=== PATIENT | female | born 1995 | race Asian ===

== ENCOUNTER 2018-12-28 04:50 | Emergency (ER) | payer OTHER ==
[2018-12-28 05:43] LABS: URINE SOURCE CLEAN C
[2018-12-28 05:45] LABS: % BASOPHILS 1.1 % (0.0-2.0); % EOSINOPHILS 2.7 % (0.0-5.0); % LYMPHOCYTES 12.9 % (20.0-50.0); % MONOCYTES 9.4 % (2.0-10.0); % NEUTROPHILS 73.9 % (40.0-80.0); BASOPHILE ABSOLUTE 0.1 Th/cumm (0-0.2); EOSINOPHILE ABSOLUTE 0.1 Th/cmm (0.1-0.4); HEMATOCRIT 32.4 % (41.0-60); HEMOGLOBIN 10.5 gm/dL (12-16); LYMPHOCYTE ABSOLUTE 0.6 Th/cmm (1.5-3.0); MEAN CELL VOLUME 76.4 fl (81-100); MEAN CORPUSCULAR HEMOGLOBIN 24.8 pg (27.0-31.0); MEAN CORPUSCULAR HGB CONC 32.5 pg (28.0-36.0); MEAN PLATELET VOLUME 8.7 fl; MONOCYTE ABSOLUTE 0.5 Th/cmm (0.3-1.0); NEUTROPHILE ABSOLUTE 3.7 Th/cmm (1.8-8.0); PLATELET COUNT 242 Th/cmm (150-400); RED BLOOD COUNT 4.24 Mil/cmm (3.80-5.10); RED CELL DISTRIBUTION WIDTH 13.4 % (11.5-20.0)
[2018-12-28 05:46] LABS: URINE BILIRUBIN NEGATIVE (NEGATIVE); URINE BLOOD LARGE (NEGATIVE); URINE GLUCOSE (UA) NEGATIVE (NEGATIVE); URINE KETONE NEGATIVE (NEGATIVE); URINE LEUKOCYTE ESTERASE NEGATIVE (NEGATIVE); URINE MICROSCOPIC INDICATED? YES; URINE NITRATE NEGATIVE (NEGATIVE); URINE PH 6.5 (4.6 - 8.0); URINE PROTEIN NEGATIVE (NEGATIVE); URINE UROBILINOGEN 0.2 E.U./dL (0.2 - 1.0)
[2018-12-28 05:52] LABS: URINE CLARITY CLEAR (CLEAR); URINE COLOR YELLOW
[2018-12-28 05:54] LABS: URINE BACTERIA FEW /hpf (NONE SEEN); URINE EPITHELIAL CELLS FEW /lpf (FEW); URINE WBC 0-2 /hpf (0-5)
[2018-12-28 05:59] LABS: ALB/GLOB RATIO 1.6 (1.0-1.8); ALBUMIN 4.4 gm/dL (3.7-5.3); ALKALINE PHOSPHATASE 57 U/L (34-104); BILIRUBIN,TOTAL 0.5 mg/dL (0.3-1.0); BUN - UREA NITROGEN 7 mg/dL (7-25); CALCIUM SERUM 9.6 mg/dL (8.6-10.3); CARBON DIOXIDE 24.1 mEq/L (21.0-31.0); CHLORIDE 107 mEq/L (98-107); CREATININE - SERUM 0.6 mg/dL (0.6-1.2); GFR AFRICAN-AMERICAN > 60.0 ml/min (>90); GFR NON AFRICAN-AMERICAN > 60.0 ml/min; GLUCOSE 93 mg/dL (70-105); POTASSIUM SERUM 4.1 mEq/L (3.5-5.1); SGOT 17 U/L (13-39); SGPT/ALT 12 U/L (7-52); SODIUM SERUM 137 mEq/L (136-145); TOTAL PROTEIN,SERUM 7.2 gm/dL (6.0-8.3)
--- NOTE | 2018-12-28 06:17 | ED Physician Chart ---
ED Chief Complaint/HPI - Patient Information Allergies:: Allergies Allergy/AdvReac Type Severity Reaction Status Date / Time No Known Allergies Allergy Verified 12/28/18 05:19 Vitals:: Vital Signs - 8 hr 12/28/18 04:58 Temp 98.3 F HR 84 RR 18 BP 118/59 O2 Sat % 99 <Gerald Franz - Last Filed: 12/28/18 07:47> - Patient Information Date Seen:: 12/28/18 Time Seen:: 06:17 Chief Complaint:: Neck pain and left upper back pain History of Present Illness:: 23 yo female was brought to ER on 5am for sudden onset of headache, neck pain, left upper back pain and left shoulder pain since 9pm, with fever and chills. Pt denied nausea or vomiting. Allergies:: Allergies Allergy/AdvReac Type Severity Reaction Status Date / Time No Known Allergies Allergy Verified 12/28/18 05:19 Vitals:: Vital Signs - 8 hr 12/28/18 04:58 Temp 98.3 F HR 84 RR 18 BP 118/59 O2 Sat % 99 <Washington Sanchez - Last Filed: 12/28/18 09:39> ED Review of Systems - Review of Systems General/Constitutional: Fever, Chills Skin: No rash Head: Headache, Light headed Eyes: No pain ENT: No earache Neck: Neck pain Cardio Vascular: No chest pain Pulmonary: SOB GI: No nausea, No vomiting G/U: No dysuria Musculoskeletal: Muscle pain Psychiatric: No prior psych history Neurological: No focal symptoms <Washington Sanchez - Last Filed: 12/28/18 09:39> ED Past Medical History - Past Medical History Past Medical History: No significant medical hx, Other Social History: Non Smoker, No Alcohol, No Drug Use Surgical History: (x 2, ), other (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 Respiratory: No Wheeze/Rhonchi/Rales Cardio Vascular: RRR, No murmur, gallop, rubs, NL S1 S2 GI: No tenderness/rebounding/guarding Extremities: Full ROM Other Extremities comments:: L-spine, c-spine tenderness, left shoulder tenderness, left shoulder painful ROM. Neuro/Psych: Alert/oriented, No focal deficits Other Neuro/Psych comments:: Babinski downward bilaterally <Washington Sanchez - Last Filed: 12/28/18 09:39> ED Labs/Radiology/EKG Results - Lab Results Results: Laboratory Tests 12/28/18 12/28/18 12/28/18 05:40 05:40 05:40 WBC 5.0 RBC 4.24 Hgb 10.5 L Hct 32.4 L MCV 76.4 L MCH 24.8 L MCHC Differential 32.5 RDW 13.4 Plt Count 242 MPV 8.7 Neutrophils % 73.9 Lymphocytes % 12.9 L Monocytes % 9.4 Eosinophils % 2.7 Basophils % 1.1 Sodium 137 Potassium 4.1 Chloride 107 Carbon Dioxide 24.1 Anion Gap 10.0 BUN 7 Creatinine 0.6 Est GFR ( Amer) > 60.0 Est GFR (Non-Af Amer) > 60.0 BUN/Creatinine Ratio 11.7 Glucose 93 Calcium 9.6 Total Bilirubin 0.5 AST 17 ALT 12 Alkaline Phosphatase 57 Total Protein 7.2 Albumin 4.4 Globulin 2.8 Albumin/Globulin Ratio 1.6 Urine Source Urine Color Urine Clarity Urine pH Ur Specific [place] Urine Protein Urine Glucose (UA) Urine Ketones Urine Blood Urine Nitrate Urine Bilirubin Urine Urobilinogen Ur Leukocyte Esterase Urine RBC Urine WBC Ur Epithelial Cells Urine Bacteria Urine Test NEGATIVE 12/28/18 05:40 WBC RBC Hgb Hct MCV MCH MCHC Differential RDW Plt Count MPV Neutrophils % Lymphocytes % Monocytes % Eosinophils % Basophils % Sodium Potassium Chloride Carbon Dioxide Anion Gap BUN Creatinine Est GFR ( Amer) Est GFR (Non-Af Amer) BUN/Creatinine Ratio Glucose Calcium Total Bilirubin AST ALT Alkaline Phosphatase Total Protein Albumin Globulin Albumin/Globulin Ratio Urine Source CLEAN C Urine Color YELLOW Urine Clarity CLEAR Urine pH 6.5 Ur Specific [place] <= 1.005 Urine Protein NEGATIVE Urine Glucose (UA) NEGATIVE Urine Ketones NEGATIVE Urine Blood LARGE H Urine Nitrate NEGATIVE Urine Bilirubin NEGATIVE Urine Urobilinogen 0.2 Ur Leukocyte Esterase NEGATIVE Urine RBC 2-5 Urine WBC 0-2 Ur Epithelial Cells FEW Urine Bacteria FEW Urine Test <Gerald Franz - Last Filed: 12/28/18 07:47> - Lab Results Results: Laboratory Tests 12/28/18 12/28/18 12/28/18 05:40 05:40 05:40 WBC 5.0 RBC 4.24 Hgb 10.5 L Hct 32.4 L MCV 76.4 L MCH 24.8 L MCHC Differential 32.5 RDW 13.4 Plt Count 242 MPV 8.7 Neutrophils % 73.9 Lymphocytes % 12.9 L Monocytes % 9.4 Eosinophils % 2.7 Basophils % 1.1 Sodium 137 Potassium 4.1 Chloride 107 Carbon Dioxide 24.1 Anion Gap 10.0 BUN 7 Creatinine 0.6 Est GFR ( Amer) > 60.0 Est GFR (Non-Af Amer) > 60.0 BUN/Creatinine Ratio 11.7 Glucose 93 Calcium 9.6 Total Bilirubin 0.5 AST 17 ALT 12 Alkaline Phosphatase 57 Total Protein 7.2 Albumin 4.4 Globulin 2.8 Albumin/Globulin Ratio 1.6 Urine Source Urine Color Urine Clarity Urine pH Ur Specific [place] Urine Protein Urine Glucose (UA) Urine Ketones Urine Blood Urine Nitrate Urine Bilirubin Urine Urobilinogen Ur Leukocyte Esterase Urine RBC Urine WBC Ur Epithelial Cells Urine Bacteria Urine Test NEGATIVE 12/28/18 05:40 WBC RBC Hgb Hct MCV MCH MCHC Differential RDW Plt Count MPV Neutrophils % Lymphocytes % Monocytes % Eosinophils % Basophils % Sodium Potassium Chloride Carbon Dioxide Anion Gap BUN Creatinine Est GFR ( Amer) Est GFR (Non-Af Amer) BUN/Creatinine Ratio Glucose Calcium Total Bilirubin AST ALT Alkaline Phosphatase Total Protein Albumin Globulin Albumin/Globulin Ratio Urine Source CLEAN C Urine Color YELLOW Urine Clarity CLEAR Urine pH 6.5 Ur Specific [place] <= 1.005 Urine Protein NEGATIVE Urine Glucose (UA) NEGATIVE Urine Ketones NEGATIVE Urine Blood LARGE H Urine Nitrate NEGATIVE Urine Bilirubin NEGATIVE Urine Urobilinogen 0.2 Ur Leukocyte Esterase NEGATIVE Urine RBC 2-5 Urine WBC 0-2 Ur Epithelial Cells FEW Urine Bacteria FEW Urine Test - Radiology Results Results: Non-contrast CT head: normal <Washington Sanchez - Last Filed: 12/28/18 09:39> ED Assessment - Assessment General Assessment: Headache Muscle pain Anemia, microcytic, hypochromic Assessment/Comments:: CBC, CMP, ESR, CRP, UA Influenza A/B screen CT head wo contrast Toradol 30 mg IM <Washington Sanchez - Last Filed: 12/28/18 09:39> ED Septic Shock - <6hrs of presentation: Vital Signs: Vital Signs - 8 hr 12/28/18 04:58 Temp 98.3 F HR 84 RR 18 BP 118/59 O2 Sat % 99 <Gerald Franz - Last Filed: 12/28/18 07:47> - . Is Septic Shock (SBP<90, OR Lactate>4 mmol\L) present?: No - <6hrs of presentation: Vital Signs: Vital Signs - 8 hr 12/28/18 04:58 Temp 98.3 F HR 84 RR 18 BP 118/59 O2 Sat % 99 <Washington Sanchez - Last Filed: 12/28/18 09:39> ED Reassessment (Disposition) - Reassessment Reassessment Condition:: Improved - Aftercare/Follow up Instructions Notes:: F/u PCP or return to ER if symptoms worsen. - Patient Disposition Discharge/Transfer:: Home <Washington Sanchez - Last Filed: 12/28/18 09:39>
--- NOTE | 2018-12-28 07:27 | Diagnostic Imaging Report ---
CT scan of the brain without contrast History: Headache Total DLP equals 562 CTDI equals 33.2 Axial sections were obtained from the base of the skull to the vertex. There is slight prominence in size of the fourth ventricle compared to the lateral and third ventricles. Finding of questionable yet doubtful significance. No focal parenchymal lesions are seen. No evidence of any mass effect or shift of midline structures. Prominent cisterna magna. No other extra-axial masses or abnormal fluid collections. Impression: No acute abnormalities
[2018-12-28 08:11] LABS: INF A SCREEN NEG FOR INF A; INF B SCREEN NEG FOR INF B
== END 2018-12-28 08:25 | disposition home or self-care (01) ==
LOC: ER 04:50
DX: D50.9 Iron deficiency anemia, unspecified (principal); R51 Headache; M54.6 Pain in thoracic spine; Z98.890 Other specified postprocedural states
CPT/HCPCS: 99284; 96372; 70450; 36415; 86141; 87804 ×2; 85025; 85652; 81001; 81025; 80053; J1885